=== PATIENT | female | born 2005 ===

== ENCOUNTER 2024-06-30 07:27 | Inpatient (IN) ==
[2024-06-30] MEDS ORDERED: LORazepam 2 mg VIAL 1 ml IV PUSH PRN ×2 (08:35)
[2024-06-30] MEDS ORDERED: Lorazepam PYXIS KEY PRN (08:49)
[2024-06-30] MEDS: IRON PO SCH (12:11)
[2024-06-30] MEDS: CYANOCOBALAMIN PO SCH (12:11)
[2024-06-30] MEDS: ASCORBIC ACID PO SCH (12:11)
[2024-06-30] MEDS: [UNRECOGNIZED DRUG - OTHER] PO SCH (12:11)
[2024-06-30] MEDS: FOLIC ACID PO SCH (12:11)
[2024-06-30 20:16] LABS: HIV 4th Generation Nonreactive (Nonreactive)
[2024-06-30 20:24] LABS: Hepatitis C Antibody Negative (Negative)
[2024-07-01] MEDS: Influenza Vaccine *TRI* 2024-25* 0.5 ML SYRINGE IM ONE (08:45)
[2024-07-01] MEDS: COVID VAC 23-24(12+)(Moderna) SYR 0.5 ML IM ONE (08:45)
[2024-07-01] MEDS: Pneumococcal 20-Valent Conj 0.5 ML SYR Vaccine IM ONE (08:46)
[2024-07-03] MEDS: CMCS:Zonisamide 100 mg CAP (NF) PO SCH ×2 (11:54→20:37)
[2024-07-03 20:14] VITALS: BP 101/74
[2024-07-03] MEDS: Lactated Ringers 1000 ml BAG 1,000 ML IV SCH (20:41)
== END 2024-07-04 10:03 | disposition home or self-care (01) | DRG 53 ==
LOC: MEDTELE 07:27
PROVIDERS: ADMIT Psychiatry & Neurology Neurology; ATTEND Psychiatry & Neurology Neurology